=== PATIENT | male | born 1955 | race Caucasian/White ===

== ENCOUNTER 2017-10-18 19:49 | Emergency (ER) | payer MEDICAID ==
[~2017-10-18] VITALS: Ht 175.3 cm; Wt 117.9 kg
[2017-10-18 20:00] VITALS: BP 132/80
[2017-10-18] MEDS ORDERED: Tetanus/Diptheria/Pertussis Vaccine 0.5ml Syr IM ONE (20:00)
[2017-10-18] MEDS ORDERED: Lidocaine 1% MPF 10mg/ml 5ml INJ ONE (20:00)
[2017-10-18] MEDS ORDERED: Neosporin Oint Ud Pkt TOP ONE (20:00)
[2017-10-18 20:23] LABS: BASOPHILS % (AUTO) 2.2 % (0.0-2.0); EOSINOPHILS % (AUTO) 2.2 % (0.0-3.0); HEMATOCRIT 38.8 % (42.0-52.0); HEMOGLOBIN 12.4 G/DL (14.2-18.0); LYMPHOCYTES % (AUTO) 52.1 % (20.0-45.0); MEAN CORPUSCULAR VOLUME 71 FL (80-99); MONOCYTES % (AUTO) 9.7 % (1.0-10.0); NEUTROPHILS % (AUTO) 33.9 % (45.0-75.0); PLATELET COUNT 429 K/UL (150-450); RED BLOOD COUNT 5.44 M/UL (4.70-6.10); RED CELL DISTRIBUTION WIDTH 15.4 % (11.6-14.8); WHITE BLOOD COUNT 11.4 K/UL (4.8-10.8)
[2017-10-18 20:47] LABS: ANION GAP 7 mmol/L (5-15); BLOOD UREA NITROGEN 5 mg/dL (7-18); CALCIUM 8.4 MG/DL (8.5-10.1); CARBON DIOXIDE 29 MMOL/L (21-32); CHLORIDE 101 MMOL/L (98-107); CREATININE 0.9 MG/DL (0.55-1.30); POTASSIUM 3.8 MMOL/L (3.5-5.1); SODIUM 137 MMOL/L (136-145)
[2017-10-18 20:53] LABS: ALANINE AMINOTRANSFERASE 183 U/L (12-78); ALBUMIN 3.3 G/DL (3.4-5.0); ALBUMIN/GLOBULIN RATIO 0.7 (1.0-2.7); ALKALINE PHOSPHATASE 58 U/L (46-116); ASPARTATE AMINO TRANSFERASE 146 U/L (15-37); BILIRUBIN,TOTAL 0.6 MG/DL (0.2-1.0)
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
[2017-10-18 21:00] VITALS: BP 128/81
[2017-10-18 21:37] LABS: APPEARANCE,URINE CLEAR; BILIRUBIN, URINE NEGATIVE (NEGATIVE); COLOR,URINE PALE YELLOW; GLUCOSE, URINE (UA) NEGATIVE (NEGATIVE); KETONES,URINE NEGATIVE (NEGATIVE); LEUKOCYTE ESTERASE ,URINE NEGATIVE (NEGATIVE); NITRITE,URINE NEGATIVE (NEGATIVE); PH,URINE 5 (4.5-8.0); PROTEIN,URINE NEGATIVE (NEGATIVE); UROBILINOGEN,URINE NORMAL MG/DL (0.0-1.0)
[2017-10-18 22:00] VITALS: BP 131/84
[2017-10-18 23:00] VITALS: BP 128/80
[2017-10-18] MEDS ORDERED: Acetaminophen 500mg (ES) tab ORAL ONE (23:45)
[2017-10-18] MEDS ORDERED: TYLENOL325 MG ORAL (23:59)
[2017-10-18] MEDS ORDERED: IBUPROFEN600 MG ORAL (23:59)
[2017-10-19] VITALS: BP 126/78
[2017-10-19 03:00] VITALS: BP 144/71
[2017-10-19 04:00] VITALS: BP 129/67
[2017-10-19 05:00] VITALS: BP 126/67
[2017-10-19 08:28] VITALS: BP 128/67
[2017-10-19 08:34] VITALS: BP 126/67
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
--- NOTE | 2017-10-19 10:13 | Diagnostic Imaging Report ---
Indication: Neck pain.. Neck injury and trauma Technique: Continuous helical imaging of the cervical spine was obtained transaxially from the skull base to the upper thoracic spine. 2-D coronal and sagittal reformatted images were obtained. Automatic Exposure Control was utilized. Total Dose length Product (DLP): 1901.[address] Dose Index Volume (CTDIvol): 70.38,25.3 mGy Comparison: None Findings: There is no acute fracture identified. No soft tissue swelling identified. Moderate narrowing of the C5-6 and C6-7 discs noted with endplate spur formation. Minimal retrolisthesis noted at both of these levels. Uncovertebral spur formation resulting in neural foraminal stenosis demonstrated especially at C5-6. There may be central stenosis also. Anterior PATIENT noted that within the carotid arteries. IMPRESSION: [facility] has communicated the preliminary results to the Emergency Department. Their findings are largely concordant with this report. No acute injury identified. Degenerative changes as described above The CT scanner at [facility] is accredited by the [employer] and the scans are performed using dose optimization techniques as appropriate to a performed exam including Automatic Exposure control.
--- NOTE | 2017-10-21 20:16 | Cardiology Report ---
APPROVED REPORT EKG Measurement Heart [id number] Normal sinus rhythm Normal ECG
== END 2017-10-19 08:37 | disposition home or self-care (01) ==
LOC: EDBD 19:49 → EMR 19:55
DX: S09.8XXA Other specified injuries of head, initial encounter (principal); S81.812A Laceration without foreign body, left lower leg, initial encounter; W10.0XXA Fall (on)(from) escalator, initial encounter; Y92.89 Other specified places as the place of occurrence of the external cause; Z23 Encounter for immunization; F10.129 Alcohol abuse with intoxication, unspecified; M54.2 Cervicalgia
CPT/HCPCS: 12001; 36415; 70450; 72125; 80053; 80307; 80329; 81001; 85025; 85610; 85730; 90471; 90715; 93005; 99284; Z7502